=== PATIENT | male | born 1965 | race Caucasian/White ===

== ENCOUNTER 2018-07-06 12:17 | Emergency (ER) | payer BC, MEDICAID ==
[~2018-07-06] VITALS: Ht 180.3 cm; Wt 83.9 kg
[~2018-07-06 12:17] MED LIST: ANDROGEL75 GM; BENAZEPRIL HCL40 MG; BENTYL 10 MG CA10 MG PO; BENTYL10 MG PO; CARAFATE 1 GM TA1 G1 PO; CARAFATE 11 GM/10 M1 PO; CELEXA40 MG PO; DILANTIN100 MG PO; FENOFIBRATE145 M1; FENOFIBRATE145 MG PO; FENTANYL PATCH75 MCG TRANSDERM; GLUCOPHAGE XR500 MG PO; GLUCOPHAGE500 MG PO; HYDROCODON-ACE1 EAC4; LIPITOR 10 MG10 M1 PO; LOTREL 10-40 M1 EACH PO; MEDROLDOSEPACK PO; MOBIC7.5 M1 PO; NAPROSYN500 MG PO; NORCO 10-325 T1 EACH PO; NORCO 5-325 TA1 EACH PO; ONDANSETRON HCL4 M2 PO; ONDANSETRON ODT4 MG PO; PERCOCET 5-3251 EACH PO; PHENERGAN 25 MG25 MG PO; PHENERGAN25 M2 RC; PROMETHAZINE HC25 M2 PO; ROBAXIN500 MG PO; TOPROL XL25 MG PO; TRAMADOL 50 MG50 MG PO; TRIAMTERENE-HC1 EAC1 PO; TRICOR145 MG PO; VICODIN HP 10-1 EAC1 PO; VITAMIN D 5050000 I1; VITAMIN D1000 UNI1 PO; XANAX 0.5 MG0.5 M1; XANAX 0.5 MG0.5 MG PO; ZANTAC 150MG T150 M1 PO; ZENPEP DR 20,01 EACH PO; ZOFRAN 4 MG ORAL4 MG PO; ZOFRAN4 MG PO; [UNRECOGNIZED DRUG - REMARK]
[2018-07-06 13:05] LABS: AMP/METHAMP Negative (Negative); BARBITURATES Negative (Negative); BENZODIAZEPINES POSITIVE (Negative); COCAINE Negative (Negative); METHADONE Negative (Negative); OPIATES POSITIVE (Negative); THC POSITIVE (Negative)
[2018-07-06 13:08] LABS: ABSOLUTE LYMPHOCYTES 1.7 thou/uL (0.8-5.3); ABSOLUTE MONOCYTES 0.6 thou/uL (0.0-1.2); BASOPHILS 0.3 %; EOSINOPHILS 0.4 %; HEMATOCRIT 49.8 % (42.0-52.0); HEMOGLOBIN 16.9 gm/dL (14.0-18.0); LYMPHOCYTES 15.1 %; MCH 31.8 pg (26.0-34.0); MCV 93.5 fL (80.0-100.0); MONOCYTES 5.5 %; MPV 8.8 fl. (7.2-11.1); NUCLEATED RBCS 0 /100WBC; PLATELET COUNT* 273 thou/uL (150-400); POLYS 78.7 %; RBC 5.33 mil/uL (4.50-6.00); RDW-CV 12.7 % (10.5-14.5); WBC 11.4 thou/uL (4.0-11.0)
[2018-07-06 13:20] LABS: ANION GAP 13 mmol/L (7-16); BUN 17 mg/dL (7-18); CALCIUM 9.7 mg/dL (8.5-10.1); CHLORIDE 98 mmol/L (98-107); CO2 26 mmol/L (21-32); GLUCOSE 138 mg/dL (70-99); POTASSIUM 3.1 mmol/L (3.5-5.1); SODIUM 137 mmol/L (136-145)
[2018-07-06 13:27] LABS: ALBUMIN 4.9 g/dL (3.4-5.0); ALKALINE PHOSPHATASE 50 U/L (46-116); AMYLASE 107 U/L (25-115); LIPASE 197 U/L (73-393); SGOT 35 U/L (15-37); SGPT 58 U/L (30-65); TOTAL BILIRUBIN 0.7 mg/dL (<0.1-1.0); TOTAL PROTEIN 8.6 g/dL (6.4-8.2); TROPONIN-I LEVEL <0.06 ng/mL (<0.06)
[2018-07-06 13:40] LABS: PCP Negative (Negative)
[2018-07-06 14:40] LABS: URINE BLOOD 3+ (Negative); URINE CLARITY CLEAR; URINE COLOR YELLOW; URINE GLUCOSE-RANDOM TRACE (Negative); URINE KETONES TRACE (Negative); URINE LEUKOCYTES-REFLEX NEGATIVE (Negative); URINE PROTEIN 3+ (Negative); URINE SPECIFIC GRAVITY >= 1.030 (1.005-1.030)
[2018-07-06 14:52] LABS: URINE BILIRUBIN 2+ (Negative); URINE NITRITE-REFLEX POSITIVE (Negative)
[2018-07-06 14:53] LABS: ICTOTEST (BILI CONFIRMATORY) Negative (Negative)
[2018-07-06 14:56] LABS: BACTERIA-REFLEX 1-9 Few /HPF (None Seen); CALCIUM OXALATE 0-3 Few /LPF (None Seen); CASTS None Seen /LPF (None Seen); MUCUS 4-6 Moderate strn/LPF (None Seen); SQUAMOUS 0-3 Few /LPF (0-3); URINE RBC 0-2 Rare /HPF (0-2); URINE WBC-REFLEX 0-5 Rare /HPF (0-5)
[2018-07-06] MEDS ORDERED: LEVAQUIN 500 M500 M2 PO (15:23)
[2018-07-06] MEDS ORDERED: LOMOTIL TABLET1 EACH PO (15:23)
[2018-07-06] MEDS ORDERED: PHENERGAN 25 MG25 M1 PO (15:23)
[2018-07-06] MEDS ORDERED: PROMS25 WY RECTAL (15:23)
[2018-07-06 16:16] VITALS: BP 120/88
--- NOTE | 2018-07-07 14:19 | EKG ---
[place] [address] ELECTROCARDIOGRAM REPORT Name: CALDERON YOUNG [id number] Admission: 07/06/18 Attend Phys: Discharge: 07/06/18 Date of : 61 Report #: [id number] THIS REPORT FOR: //name// [facility] ED Test Date: 2018-07-06 Test Time: 13:56:58 Pat Name: CALDERON YOUNG Department: Room: Gender: Sawmill Hand: Star BROOKS : 1965 Requested By: Radha Mckeon Order Number: [id number] MD: Asim Ortiz Measurements Intervals [place] Rate: 55 P: 17 TX: 116 QRS: 69 QRSD: 110 T: 43 QT: 467 QTc: 447 Interpretive Statements Sinus bradycardia Borderline short [place] interval Compared to ECG 10/24/2013 09:45:21 rate increased Electronically Signed On 07-07-2018 14:19:21 PHOTOGRAPHY INSTRUCTOR by Asim rOtiz [email or web address] <ELECTRONICALLY SIGNED> By: Asim Ortiz MD, [facility] 07/07/18 1419 1356 1356 Asim Ortiz MD, FACC /EPI
== END 2018-07-06 16:17 | disposition home or self-care (01) ==
LOC: M.ERS 12:17
PROVIDERS: Nurse Practitioner Family
DX: K52.9 Noninfective gastroenteritis and colitis, unspecified (principal); E87.6 Hypokalemia; N39.0 Urinary tract infection, site not specified; I10 Essential (primary) hypertension; E11.9 Type 2 diabetes mellitus without complications; F41.9 Anxiety disorder, unspecified; F32.9 Major depressive disorder, single episode, unspecified; F17.210 Nicotine dependence, cigarettes, uncomplicated; Z88.6 Allergy status to analgesic agent; Z90.49 Acquired absence of other specified parts of digestive tract; Z79.899 Other long term (current) drug therapy

== ENCOUNTER 2018-11-15 10:51 | Emergency (ER) | payer BC, MEDICAID ==
[~2018-11-15] VITALS: Ht 180.3 cm; Wt 81.7 kg
[~2018-11-15 10:51] MED LIST changes: +LEVAQUIN 500 M500 M2 PO; +LOMOTIL TABLET1 EACH PO; +PHENERGAN 25 MG25 M1 PO; +PROMS25 WY RECTAL
[2018-11-15 11:19] LABS: HEMOGLOBIN 16.4 gm/dL (14.0-18.0); MCH 31.5 pg (26.0-34.0); MCHC 34.3 g/dL (28.0-37.0); MPV 8.6 fl. (7.2-11.1); NUCLEATED RBCS 0 /100WBC; PLATELET COUNT* 279 thou/uL (150-400); RBC 5.21 mil/uL (4.50-6.00); RDW-CV 13.3 % (10.5-14.5); WBC 14.2 thou/uL (4.0-11.0)
[2018-11-15 11:39] LABS: ALBUMIN 4.6 g/dL (3.4-5.0); ALKALINE PHOSPHATASE 54 U/L (46-116); ANION GAP 13 mmol/L (7-16); BUN 17 mg/dL (7-18); CALCIUM 9.2 mg/dL (8.5-10.1); CHLORIDE 101 mmol/L (98-107); CO2 27 mmol/L (21-32); CREATININE 0.9 mg/dL (0.6-1.3); GLUCOSE 186 mg/dL (70-99); LIPASE 91 U/L (73-393); SGOT 26 U/L (15-37); SGPT 37 U/L (30-65); SODIUM 141 mmol/L (136-145); TOTAL BILIRUBIN 0.5 mg/dL (<0.1-1.0); TOTAL PROTEIN 8.3 g/dL (6.4-8.2); TROPONIN-I LEVEL <0.06 ng/mL (<0.06)
[2018-11-15 11:43] LABS: ABSOLUTE LYMPHOCYTES 1.1 thou/uL (0.8-5.3); ABSOLUTE MONOCYTES 0.4 thou/uL (0.0-1.2); ABSOLUTE NEUTROPHILS 12.6 thou/uL (1.6-8.1); ANISOCYTOSIS 1+; PLATELET ESTIMATE ADEQUATE; POIKILOCYTOSIS 1+
[2018-11-15] MEDS ORDERED: ZOFRAN4 MG PO (14:00)
[2018-11-15 14:19] VITALS: BP 168/89
--- NOTE | 2018-11-15 16:33 | EKG ---
[place] [address] ELECTROCARDIOGRAM REPORT Name: CALDERON YOUNG [id number] Admission: 11/15/18 Attend Phys: Discharge: 11/15/18 Date of : 61 Report #: [id number] THIS REPORT FOR: //name// [facility] ED Test Date: 2018-11-15 Test Time: 11:20:18 Pat Name: CALDERON YOUNG Department: Room: Gender: M Well Logger: TDOWNS : 1965 Requested By: Norberto Bond Order Number: [id number] MD: Kristofer Haile Measurements Intervals [place] Rate: 45 P: 54 VA: 133 QRS: 56 QRSD: 100 T: 44 QT: 490 QTc: 424 Interpretive Statements Sinus bradycardia Compared to ECG 07/06/2018 13:56:58 No significant changes Electronically Signed On 11-15-2018 16:33:43 CDT by Kristofer Haile [email or web address] <ELECTRONICALLY SIGNED> By: Kristofer Haile MD, [facility] 11/15/18 1633 D: 03/1119 1120 Kristofer Haile MD, FACC /EPI
== END 2018-11-15 14:14 | disposition home or self-care (01) ==
LOC: M.ERS 10:51
PROVIDERS: Emergency Medicine
DX: R10.13 Epigastric pain (principal); R11.2 Nausea with vomiting, unspecified; F17.210 Nicotine dependence, cigarettes, uncomplicated; I10 Essential (primary) hypertension; E11.9 Type 2 diabetes mellitus without complications; F41.9 Anxiety disorder, unspecified; F32.9 Major depressive disorder, single episode, unspecified; Z88.5 Allergy status to narcotic agent; Z90.49 Acquired absence of other specified parts of digestive tract

== ENCOUNTER 2018-12-18 12:14 | Inpatient (IN) | payer BC, MEDICAID ==
[~2018-12-18] VITALS: Ht 180.3 cm; Wt 90.7 kg
--- NOTE | ~2018-12-18 | CON ---
[address] [address] CONSULTATION Name: CALDERON YOUNG Room: [address] IN .R.#: [id number] Admission: 12/18/18 Attend Phys: Claudia James MD Discharge: Date of : 61 Report #: [id number] THIS REPORT FOR: //name// CC: Jt James [facility] DATE OF SERVICE: 12/18/2018 REFERRING PHYSICIAN: Dr. Smallwood. REASON FOR CONSULTATION: Right renal pelvic stone and right flank pain. HISTORY OF PRESENT ILLNESS: This 53-year-old gentleman with a known right 1 cm renal pelvic stone. He saw my partner, Dr. Carney, recently, who has him scheduled for ureteroscopy, laser lithotripsy and stent placement next week. Unfortunately, he has developed some progressive flank pain. He has felt hot and has had some nausea without vomiting. He thinks he may have had a fever, but none has been recorded while he is in the hospital. He presented to the Emergency Room, where he has been given IV narcotics and he is feeling better. PAST MEDICAL HISTORY: History of pancreatitis, diabetes, hypertension, back fusion, hip repair, laparoscopic cholecystectomy, left foot surgery, anxiety, depression, kidney stones. MEDICATIONS: Promethazine, Robaxin, hydrocodone, fentanyl, amlodipine, ranitidine, alprazolam, amylase/lipase/protease, metoprolol, metformin, and fenofibrate. ALLERGIES: ZOFRAN. SOCIAL HISTORY: He does smoke tobacco about half pack a day. Denies any alcohol use or drug use. REVIEW OF SYSTEMS: CONSTITUTIONAL: He does note some subjective fevers and chills. RESPIRATORY: No cough or shortness of breath. CARDIOVASCULAR: No chest pain or palpitations. GASTROINTESTINAL: He does have abdominal pain, but denies any diarrhea or constipation. GENITOURINARY: No frequency, urgency, or dysuria. No gross hematuria. A 10-point review of systems is otherwise reviewed and negative. PHYSICAL EXAMINATION: VITAL SIGNS: Temperature 37.4, heart rate 55, respiratory rate 17, [place] [address] CONSULTATION Name: CALDERON YOUNG Room: [address]#: [id number] Admission: 12/18/18 Attend Phys: Claudia James MD Discharge: Date of : 61 Report #: [id number] pressure 142/84. GENERAL: He is alert and oriented x 3, no apparent distress. HEENT: Normocephalic, atraumatic. NECK: Supple. LUNGS: Clear. HEART: Regular rate and rhythm. ABDOMEN: Soft, nontender, nondistended. BACK: No CVA tenderness. EXTREMITIES: No cyanosis, clubbing, edema. SKIN: Warm, dry, and intact. NEUROLOGIC: Cranial nerves 2-12 are intact. LABORATORY DATA: White count 10.3, hemoglobin 15.8, platelets 245. Urinalysis, 0-5 white cells, greater than 20 red blood cells, 1-9 bacteria. Sodium 141, potassium 4, BUN 14, creatinine 0.9. CT scan of the abdomen and pelvis, I reviewed the images, it shows an 11 mm right UPJ stone without any hydronephrosis, there is some periureteric inflammatory changes surrounding the UPJ, no other stones were identified on the right or the left. ASSESSMENT AND PLAN: An 11 mm right ureteropelvic junction stone. I reviewed the options in detail with the patient of stenting versus medical management until he can have his plan treatment next week with Dr. Carney versus attempted ureteroscopy while he is hospitalized. He does not feel that he can be discharged without needing IV narcotics, so he prefers to try to schedule ureteroscopy with laser lithotripsy and stent placement while he is in the hospital. We will check OR and surgeon availability. If possible, we will try to arrange for tomorrow or possibly Sunday. I explained the risks, benefits, possible complications of cystoscopy with retrograde pyelogram, ureteroscopy, laser lithotripsy and stenting. They include but not limited to bleeding; infection; damage to surrounding organs such as urethra, the bladder, and the ureter; inability to treat stone in a single setting; the need for secondary procedures including a repeat ureteroscopy, lithotripsy, stent irritation and complications from general anesthesia. He voiced current understanding. He had a chance to ask questions, which were answered to his satisfaction. He elects to proceed. If he does spike a measurable temperature here, I will recommend more urgent stenting. Possible urinary tract infection, urine is not that remarkable for infection, but we will start him on empiric antibiotics given his history of a recent subjective fever. By: [id number] Tolliver MD /nt
[2018-12-18 12:19] VITALS: BP 111/76
[2018-12-18 12:36] LABS: URINE BLOOD 3+ (Negative); URINE CLARITY CLEAR; URINE COLOR YELLOW; URINE GLUCOSE-RANDOM NEGATIVE (Negative); URINE KETONES NEGATIVE (Negative); URINE LEUKOCYTES-REFLEX TRACE (Negative); URINE NITRITE-REFLEX NEGATIVE (Negative); URINE PROTEIN 2+ (Negative); URINE SPECIFIC GRAVITY 1.015 (1.005-1.030); URINE UROBILINOGEN 0.2 E.U./dl (0.2-1.0)
[2018-12-18 12:38] LABS: ICTOTEST (BILI CONFIRMATORY) Negative (Negative); URINE BILIRUBIN 1+ (Negative)
[2018-12-18 12:41] LABS: BACTERIA-REFLEX 1-9 Few /HPF (None Seen); CASTS None Seen /LPF (None Seen); CRYSTALS None Seen /LPF (None Seen); MUCUS None Seen strn/LPF (None Seen); SQUAMOUS 0-3 Few /LPF (0-3); URINE RBC >20 Many /HPF (0-2); URINE WBC-REFLEX 0-5 Rare /HPF (0-5)
[2018-12-18 13:04] LABS: ABSOLUTE LYMPHOCYTES 1.6 thou/uL (0.8-5.3); ABSOLUTE MONOCYTES 0.4 thou/uL (0.0-1.2); ABSOLUTE NEUTROPHILS 8.3 thou/uL (1.6-8.1); BASOPHILS 0.3 %; EOSINOPHILS 0.1 %; HEMATOCRIT 46.3 % (42.0-52.0); HEMOGLOBIN 15.8 gm/dL (14.0-18.0); LYMPHOCYTES 15.6 %; MCH 31.5 pg (26.0-34.0); MCHC 34.1 g/dL (28.0-37.0); MCV 92.4 fL (80.0-100.0); MONOCYTES 3.8 %; MPV 8.8 fl. (7.2-11.1); NUCLEATED RBCS 0 /100WBC; PLATELET COUNT* 245 thou/uL (150-400); POLYS 80.2 %; RBC 5.01 mil/uL (4.50-6.00); RDW-CV 13.4 % (10.5-14.5); WBC 10.3 thou/uL (4.0-11.0)
[2018-12-18 13:18] LABS: ALKALINE PHOSPHATASE 45 U/L (46-116); ANION GAP 10 mmol/L (7-16); BUN 14 mg/dL (7-18); CALCIUM 8.8 mg/dL (8.5-10.1); CHLORIDE 103 mmol/L (98-107); CO2 28 mmol/L (21-32); CREATININE 0.9 mg/dL (0.6-1.3); GLUCOSE 140 mg/dL (70-99); LIPASE 154 U/L (73-393); SGOT 16 U/L (15-37); SGPT 28 U/L (30-65); SODIUM 141 mmol/L (136-145); TOTAL BILIRUBIN 0.4 mg/dL (<0.1-1.0); TOTAL PROTEIN 7.5 g/dL (6.4-8.2); TROPONIN-I LEVEL <0.06 ng/mL (<0.06)
[2018-12-18 14:24] VITALS: BP 137/83
[2018-12-18 15:15] VITALS: BP 142/84
[2018-12-18 20:00] VITALS: BP 125/79
[2018-12-19 03:44] LABS: ABSOLUTE EOSINOPHILS 0.1 thou/uL (0.0-0.7); ABSOLUTE LYMPHOCYTES 2.6 thou/uL (0.8-5.3); ABSOLUTE MONOCYTES 0.6 thou/uL (0.0-1.2); ABSOLUTE NEUTROPHILS 3.8 thou/uL (1.6-8.1); BASOPHILS 0.6 %; EOSINOPHILS 1.1 %; HEMATOCRIT 39.8 % (42.0-52.0); LYMPHOCYTES 36.8 %; MCH 31.4 pg (26.0-34.0); MCHC 33.8 g/dL (28.0-37.0); MCV 92.8 fL (80.0-100.0); NUCLEATED RBCS 0 /100WBC; PLATELET COUNT* 191 thou/uL (150-400); POLYS 53.5 %; RBC 4.29 mil/uL (4.50-6.00); RDW-CV 13.3 % (10.5-14.5); WBC 7.1 thou/uL (4.0-11.0)
[2018-12-19 03:52] LABS: CALCIUM 8.2 mg/dL (8.5-10.1); CREATININE 0.9 mg/dL (0.6-1.3); POTASSIUM 3.5 mmol/L (3.5-5.1)
[2018-12-19 04:12] LABS: HEMOGLOBIN 13.4 gm/dL (14.0-18.0)
[2018-12-19 08:00] VITALS: BP 145/94
[2018-12-19 21:45] VITALS: BP 146/89
[2018-12-20 07:50] VITALS: BP 158/98
[2018-12-20 16:57] VITALS: BP 158/98
[2018-12-20 18:30] VITALS: BP 148/78
[2018-12-20 19:30] VITALS: BP 179/96
[2018-12-21] VITALS: BP 143/81
[2018-12-21 04:00] VITALS: BP 159/88
[2018-12-21 04:32] LABS: CALCIUM 8.5 mg/dL (8.5-10.1); CREATININE 0.8 mg/dL (0.6-1.3); POTASSIUM 3.8 mmol/L (3.5-5.1)
[2018-12-21 08:15] VITALS: BP 156/84
[2018-12-21] MEDS ORDERED: LEVSIN0.125 MG SUBLING (11:13)
[2018-12-21] MEDS ORDERED: FLOMAX0.4 MG PO (11:13)
[2018-12-21] MEDS ORDERED: CIPRO500 M1 PO (11:14)
[2018-12-21] MEDS ORDERED: SENNA S TABLET1 EACH PO (11:15)
[2018-12-21 12:06] VITALS: BP 158/98
[2018-12-21] MEDS ORDERED: VICODIN HP 10-1 EAC1 PO (13:08)
[2018-12-21 14:17] VITALS: BP 158/98
--- NOTE | 2018-12-23 11:12 | OP ---
[facility] [address] [place] [address] OPERATIVE REPORT Name: CALDERON YOUNG Room: [address]R.#: [id number] Admission: 12/18/18 Attend Phys: Claudia James MD Discharge: 12/21/18 Date of : 61 Report #: [id number] THIS REPORT FOR: //name// CC: Claudia James [facility] DATE OF SERVICE: 12/20/2018 PREOPERATIVE DIAGNOSIS: Right flank pain and ureteropelvic junction calculus. POSTOPERATIVE DIAGNOSIS: Right flank pain and ureteropelvic junction calculus. PROCEDURE: Cystoscopy, right retrograde pyelogram, right ureteral stent placement. SURGEON: Calderon Adams M.D. ANESTHESIA: General. ESTIMATED BLOOD LOSS: None. DRAINS: A 6 x 28 right ureteral stent. SPECIMENS: None. COMPLICATIONS: None. INDICATIONS: This is a 53-year-old male admitted with intractable right flank pain and a 1.1 cm right ureteropelvic junction calculus. After discussion of options for management, he has decided to undergo cystoscopy with right retrograde pyelogram, right ureteral stent placement, possible ureteroscopic stone manipulation with laser. Risks of procedure were explained including, but not limited to, bleeding, infection, anesthesia, cardiopulmonary, vascular events, injury to urethra, bladder, ureters and surrounding structures, possible development of strictures, possible inability to bypass obstruction, possible need for further stone procedures. We also discussed importance of timely followup regarding any ureteral stent left in place and the reasoning for that. Discussed stent symptoms as well. He voiced clear understanding and wanted to proceed. CT images were reviewed and consistent with the radiology report. DESCRIPTION OF PROCEDURE: The patient was on perioperative IV Rocephin. After induction of general anesthesia, he was positioned, prepped and draped in the lithotomy position. Cystourethroscopy was performed after a timeout procedure. The anterior urethra was normal. There was mild bilateral lobe impingement in the prostatic urethra. The bladder neck was elevated. The bladder was entered and systematically examined. The bladder was somewhat [place] [address] OPERATIVE REPORT Name: CALDERON YOUNG Room: [address] IN [facility].#: [id number] Admission: 12/18/18 Attend Phys: Claudia James MD Discharge: 12/21/18 Date of : 61 Report #: [id number] no urethral or bladder lesions visible. Ureteral orifices were orthotopic. No blood was seen from either. Fluoroscopic interrogation over the abdomen was consistent with a right ureteropelvic junction calculus. A 5-Anguillan ureteral catheter was used to perform a right retrograde pyelogram as other calcifications were seen in the pelvis. The distal and mid ureter were normal. Calcification on the right side of the pelvis was noted to be outside the ureter and not producing a filling defect. The filling defect was noted in the region of the right ureteropelvic junction. Catheter was removed and a sensor wire was advanced into the renal pelvis with fluoroscopic guidance. The scope was removed and passed alongside the wire. The scope was used for passage of a second sensor wire alongside the original wire. This was also passed into the renal pelvis with fluoroscopic guidance. Scope was removed leaving both wires in place. Attempts to pass the 11-Anguillan obturator from 07/02 x 36 cm ureteral access sheath were unsuccessful with gentle manipulation. Fluoroscopic guidance revealed the catheter not advancing easily and some kinking in the region of the bladder neck possibly related to his bladder neck elevation. Attempts to pass the obturator and sheath in tandem with gentle manipulation were also unsuccessful. I elected to place a ureteral stent to allow for passive dilation and deferred definitive stone management. This possibility had been discussed with the patient preoperatively. One of the wires was removed leaving the original wire in place. This was loaded onto the cystoscope and used for placement of a 6 x 28 right ureteral stent with good position confirmed in the renal pelvis fluoroscopically and in the bladder visually. Drainage from the stent was clear. The bladder was left partially filled and the scope was removed. Lidocaine jelly was given per urethra. Given the patient's significant voiding symptomatology and bladder neck elevation, I elected to leave the Salas catheter in place overnight. We will arrange for a voiding trial in the morning. The patient tolerated the procedure well and was taken to the recovery room in stable condition. Plan will be to have him followup regarding definitive stone management after a period of passive dilation. <ELECTRONICALLY SIGNED> By: Calderon Adams MD 12/23/18 1112 1737 2043Joneto Adams MD /rick
== END 2018-12-21 13:20 | disposition home or self-care (01) | DRG 660 ==
LOC: M.ERS 12:14 → M.ORTHSURG 14:03 → M.TBA-ER 14:03 → M.ORTHSURG 14:56
PROVIDERS: Physician Assistant; Urology; ADMIT Internal Medicine
DX: N13.2 Hydronephrosis with renal and ureteral calculous obstruction (principal); K86.1 Other chronic pancreatitis; E11.9 Type 2 diabetes mellitus without complications; I10 Essential (primary) hypertension; F41.9 Anxiety disorder, unspecified; F32.9 Major depressive disorder, single episode, unspecified; G89.29 Other chronic pain; F17.210 Nicotine dependence, cigarettes, uncomplicated; M19.91 Primary osteoarthritis, unspecified site; F41.1 Generalized anxiety disorder; M54.9 Dorsalgia, unspecified; R31.29 Other microscopic hematuria; Z90.49 Acquired absence of other specified parts of digestive tract; Z87.442 Personal history of urinary calculi; Z88.6 Allergy status to analgesic agent; Z88.8 Allergy status to other drugs, medicaments and biological substances; Z79.891 Long term (current) use of opiate analgesic; Z82.49 Family history of ischemic heart disease and other diseases of the circulatory system; Z80.52 Family history of malignant neoplasm of bladder; Z80.51 Family history of malignant neoplasm of kidney; Z83.6 Family history of other diseases of the respiratory system; Z83.3 Family history of diabetes mellitus; Z79.899 Other long term (current) drug therapy

== ENCOUNTER 2021-03-12 16:46 | Inpatient (IN) | payer MEDICAID ==
[~2021-03-12] VITALS: Ht 180.3 cm; Wt 77.1 kg
--- NOTE | ~2021-03-12 | H ---
[address] [address] HISTORY AND PHYSICAL Name: CALDERON YOUNG Room: [address] IN M.R.#: [id number] Admission: 03/12/21 Attend Phys: Gm Rodriguez Discharge: 03/13/21 Date of : 61 Report #: [id number] THIS REPORT FOR: cc: Markos Lora MD, Usman MD [facility],Medical Records Staff ~ Patient was here less than 24 hour please refer to the emergency room note. By: 1454Medical Records Staff MEL /DAQUAN
[~2021-03-12 16:46] MED LIST changes: +CIPRO500 M1 PO; +FLOMAX0.4 MG PO; +LEVSIN0.125 MG SUBLING; +SENNA S TABLET1 EACH PO
[2021-03-12 16:55] VITALS: BP 185/82
[2021-03-12] MEDS ORDERED: FAMOTIDINE 10 M10 MG PO (17:02)
[2021-03-12 18:07] LABS: URINE BILIRUBIN NEGATIVE (Negative); URINE BLOOD NEGATIVE (Negative); URINE CLARITY CLEAR; URINE COLOR YELLOW; URINE GLUCOSE-RANDOM NEGATIVE (Negative); URINE KETONES NEGATIVE (Negative); URINE LEUKOCYTES-REFLEX NEGATIVE (Negative); URINE NITRITE-REFLEX NEGATIVE (Negative); URINE PROTEIN NEGATIVE (Negative); URINE SPECIFIC GRAVITY >= 1.030 (1.005-1.030); URINE UROBILINOGEN 0.2 E.U./dl (0.2-1.0)
[2021-03-12 18:10] LABS: HEMATOCRIT 41.5 % (42.0-52.0); HEMOGLOBIN 14.2 gm/dL (14.0-18.0); MCH 31.8 pg (26.0-34.0); MCHC 34.2 g/dL (28.0-37.0); MCV 92.9 fL (80.0-100.0); MPV 8.2 fl. (7.2-11.1); NUCLEATED RBCS 0 /100WBC; PLATELET COUNT* 283 thou/uL (150-400); RBC 4.46 mil/uL (4.50-6.00); RDW-CV 13.3 % (10.5-14.5); WBC 12.6 thou/uL (4.0-11.0)
[2021-03-12 18:16] LABS: AMP/METHAMP Negative (Negative); BARBITURATES Negative (Negative); BENZODIAZEPINES POSITIVE (Negative); COCAINE Negative (Negative); METHADONE Negative (Negative); OPIATES POSITIVE (Negative); PCP Negative (Negative); THC POSITIVE (Negative)
[2021-03-12 18:19] LABS: CALCIUM 9.2 mg/dL (8.5-10.1); POTASSIUM 4.1 mmol/L (3.5-5.1)
[2021-03-12 18:24] LABS: ALBUMIN 4.6 g/dL (3.4-5.0); TOTAL BILIRUBIN 0.4 mg/dL (<0.1-1.0)
[2021-03-12 18:43] LABS: ABSOLUTE LYMPHOCYTES 1.3 thou/uL (0.8-5.3); ABSOLUTE NEUTROPHILS 11.3 thou/uL (1.6-8.1)
[2021-03-12 18:44] LABS: PLATELET ESTIMATE ADEQUATE
[2021-03-12 20:20] VITALS: BP 148/91
[2021-03-12 21:18] VITALS: BP 149/81
--- NOTE | 2021-03-13 00:22 | NUR ---
PT REPORTED THAT HE WANTED TO LEAVE AMA; HE STATED " I DO NOT WANT TO STAY IN THE ER TO BE BOARDED AN INPATIENT FOR A HEART RATE"; NURSE EDUCATED PT THAT HE WAS BEING ADMITTED FOR BRADYCARDIA EVALUTION; EXPLAINED THE RISK ARE BRAIN HYPOXIA AND EVEN ; PT WAS WILL TO SIGN THE AMA PAPERS; AMBULATED SELF FROM THE ER PER SELF; IV REMOVED PER NURSE INTACT NO REDDNESS OR BLEEDING; DISCHARGED COMPLETED
--- NOTE | 2021-03-14 13:59 | EKG ---
[place] [address] ELECTROCARDIOGRAM REPORT Name: CALDERON YOUNG Room: [place] [address] [address] IN M.R.#: [id number] Admission: 03/12/21 Attend Phys: Conor Garcia Discharge: 03/13/21 Date of : 61 Date of Service: 03/12/211815 Report #: [id number] THIS REPORT FOR: //name// [facility] ED Test Date: 2021-03-12 Test Time: 18:16:42 Pat Name: CALDERON YOUNG Department: Room: [facility] Gender: M Residential Collections: STUDENT : 1965 Requested By: Radha Mckeon Order Number: [id number] MD: Calderon Jenkins Measurements Intervals [place] Rate: 36 P: 45 SD: 114 QRS: 63 QRSD: 101 T: 64 QT: 517 QTc: 400 Interpretive Statements Sinus bradycardia Borderline short SD interval Compared to ECG 11/15/2018 11:20:18 No significant changes Electronically Signed On 03-14-2021 13:59:14 CDT by Calderon Jenkins [email or web address] <ELECTRONICALLY SIGNED> By: Calderon Jenkins MD, [facility] 03/14/21 1359 1816 1816 Calderon Jenkins MD, [facility] /EPI
== END 2021-03-13 00:26 | disposition left against medical advice (07) | DRG 310 ==
LOC: M.ERS 16:46 → M.TBA-ER 20:20
PROVIDERS: Nurse Practitioner Family; ADMIT Internal Medicine; ATTEND Internal Medicine
DX: R00.1 Bradycardia, unspecified (principal); E11.9 Type 2 diabetes mellitus without complications; I10 Essential (primary) hypertension; F41.9 Anxiety disorder, unspecified; F32.9 Major depressive disorder, single episode, unspecified; R11.15 Cyclical vomiting syndrome unrelated to migraine; G89.29 Other chronic pain; Z20.822 Contact with and (suspected) exposure to COVID-19; Z53.21 Procedure and treatment not carried out due to patient leaving prior to being seen by health care provider; Z79.899 Other long term (current) drug therapy; Z98.1 Arthrodesis status; Z90.49 Acquired absence of other specified parts of digestive tract; Z79.84 Long term (current) use of oral hypoglycemic drugs; Z88.5 Allergy status to narcotic agent

== ENCOUNTER 2021-04-28 05:54 | Inpatient (IN) | payer MEDICAID ==
[~2021-04-28] VITALS: Ht 180.3 cm; Wt 77.1 kg
[~2021-04-28 05:54] MED LIST changes: +FAMOTIDINE 10 M10 MG PO
[2021-04-28 06:26] LABS: ABSOLUTE BASOPHILS 0.1 thou/uL (0.0-0.2); ABSOLUTE EOSINOPHILS 0.1 thou/uL (0.0-0.7); ABSOLUTE LYMPHOCYTES 1.5 thou/uL (0.8-5.3); ABSOLUTE MONOCYTES 0.6 thou/uL (0.0-1.2); ABSOLUTE NEUTROPHILS 11.4 thou/uL (1.6-8.1); BASOPHILS 0.5 %; EOSINOPHILS 0.6 %; HEMATOCRIT 43.2 % (42.0-52.0); HEMOGLOBIN 14.6 gm/dL (14.0-18.0); LYMPHOCYTES 11.2 %; MCH 30.9 pg (26.0-34.0); MCHC 33.9 g/dL (28.0-37.0); MPV 8.5 fl. (7.2-11.1); NUCLEATED RBCS 0 /100WBC; PLATELET COUNT* 259 thou/uL (150-400); POLYS 83.7 %; RBC 4.74 mil/uL (4.50-6.00); WBC 13.7 thou/uL (4.0-11.0)
[2021-04-28 06:37] LABS: CALCIUM 8.9 mg/dL (8.5-10.1); CREATININE 1.1 mg/dL (0.6-1.3); POTASSIUM 3.4 mmol/L (3.5-5.1)
[2021-04-28 06:41] LABS: ALBUMIN 4.5 g/dL (3.4-5.0); MAGNESIUM 1.3 mg/dL (1.8-2.4); TOTAL BILIRUBIN 0.5 mg/dL (<0.1-1.0); TOTAL PROTEIN 7.8 g/dL (6.4-8.2)
--- NOTE | 2021-04-28 09:54 | NUR ---
PT TAKEN TO PACU WITH BOARDING RN.
[2021-04-28 10:11] VITALS: BP 147/79
[2021-04-28] MEDS ORDERED: METFORMIN HCL500 M3 PO (10:54)
[2021-04-28] MEDS ORDERED: METHOCARBAMOL500 M2 PO (10:55)
[2021-04-28] MEDS ORDERED: LIPITOR10 MG PO (10:57)
[2021-04-28] MEDS ORDERED: DULOXETINE HCL60 MG PO (10:58)
[2021-04-28] MEDS ORDERED: HYDROCHLOROTHIA25 M1 PO (11:05)
[2021-04-28] MEDS ORDERED: TRIAMTERENE/HCT1 CA1 PO (11:06)
[2021-04-28] MEDS ORDERED: HYDROXYZINE HCL25 M2 PO (11:11)
[2021-04-28] MEDS ORDERED: NEURONTIN 300M300 M2 PO (11:12)
[2021-04-28 16:00] VITALS: BP 115/70
[2021-04-28 20:00] VITALS: BP 144/71
[2021-04-29 02:55] VITALS: BP 127/80
[2021-04-29 04:39] LABS: HEMATOCRIT 35.9 % (42.0-52.0); MCH 31.8 pg (26.0-34.0); MCHC 34.7 g/dL (28.0-37.0); MCV 91.6 fL (80.0-100.0); MPV 8.3 fl. (7.2-11.1); RBC 3.92 mil/uL (4.50-6.00); WBC 5.6 thou/uL (4.0-11.0)
[2021-04-29 04:51] LABS: CREATININE 0.9 mg/dL (0.6-1.3); MAGNESIUM 1.5 mg/dL (1.8-2.4); POTASSIUM 3.4 mmol/L (3.5-5.1)
[2021-04-29 04:56] LABS: HEMOGLOBIN 12.4 gm/dL (14.0-18.0)
[2021-04-29 06:09] VITALS: BP 131/82
[2021-04-29 08:43] VITALS: BP 130/74
[2021-04-29 13:20] LABS: URINE BLOOD NEGATIVE (Negative); URINE CLARITY CLEAR; URINE COLOR YELLOW; URINE GLUCOSE-RANDOM NEGATIVE (Negative); URINE KETONES TRACE (Negative); URINE LEUKOCYTES-REFLEX NEGATIVE (Negative); URINE NITRITE-REFLEX NEGATIVE (Negative); URINE PROTEIN NEGATIVE (Negative); URINE SPECIFIC GRAVITY 1.025 (1.005-1.030); URINE UROBILINOGEN 0.2 E.U./dl (0.2-1.0)
[2021-04-29 13:27] LABS: ICTOTEST (BILI CONFIRMATORY) Negative (Negative); URINE BILIRUBIN 1+ (Negative)
[2021-04-29 14:01] LABS: ALBUMIN 3.5 g/dL (3.4-5.0); CALCIUM 7.8 mg/dL (8.5-10.1); CREATININE 0.8 mg/dL (0.6-1.3); POTASSIUM 4.2 mmol/L (3.5-5.1); TOTAL BILIRUBIN 1.1 mg/dL (<0.1-1.0); TOTAL PROTEIN 6.3 g/dL (6.4-8.2)
--- NOTE | 2021-04-29 15:50 | NUR ---
Pt resides at home with SO. Independent. No DME. No hx of HH or SNF. Goal is home at dc. Anticipate dc in a few days. Manage pain
[2021-04-29 16:00] VITALS: BP 142/75
[2021-04-29 20:00] VITALS: BP 132/74
[2021-04-30 02:36] VITALS: BP 130/70
[2021-04-30 05:27] VITALS: BP 132/72
[2021-04-30 07:20] VITALS: BP 118/69
[2021-04-30 12:24] VITALS: BP 153/77
[2021-04-30 12:29] LABS: ABSOLUTE EOSINOPHILS 0.1 thou/uL (0.0-0.7); ABSOLUTE LYMPHOCYTES 1.3 thou/uL (0.8-5.3); ABSOLUTE MONOCYTES 0.4 thou/uL (0.0-1.2); ABSOLUTE NEUTROPHILS 4.2 thou/uL (1.6-8.1); BASOPHILS 0.7 %; EOSINOPHILS 1.6 %; HEMATOCRIT 35.1 % (42.0-52.0); HEMOGLOBIN 12.1 gm/dL (14.0-18.0); LYMPHOCYTES 22.3 %; MCH 31.6 pg (26.0-34.0); MCHC 34.4 g/dL (28.0-37.0); MONOCYTES 5.9 %; MPV 8.2 fl. (7.2-11.1); NUCLEATED RBCS 0 /100WBC; PLATELET COUNT* 189 thou/uL (150-400); POLYS 69.5 %; RBC 3.82 mil/uL (4.50-6.00); RDW-CV 12.9 % (10.5-14.5)
[2021-04-30 12:42] LABS: PROTIME 10.9 Seconds (9.20-11.50)
[2021-04-30 12:47] LABS: ALBUMIN 3.4 g/dL (3.4-5.0); ALKALINE PHOSPHATASE 134 U/L (46-116); ANION GAP 8 mmol/L (7-16); BUN 13 mg/dL (7-18); CHLORIDE 103 mmol/L (98-107); CHOLESTEROL 100 mg/dL (<200); CO2 26 mmol/L (21-32); CREATININE 0.7 mg/dL (0.6-1.3); GLUCOSE 113 mg/dL (70-99); HDL CHOLESTEROL 27 mg/dL (>40); LDL CHOLESTEROL 41 mg/dL (<100); POTASSIUM 3.8 mmol/L (3.5-5.1); SERUM ASSESSMENT Clear; SGOT 131 U/L (15-37); SGPT 201 U/L (30-65); SODIUM 137 mmol/L (136-145); TC:HDL 3.7 Ratio (Not establshd); TOTAL BILIRUBIN 0.6 mg/dL (<0.1-1.0); TOTAL PROTEIN 6.2 g/dL (6.4-8.2); TRIGLYCERIDE 162 mg/dL (<150); VLDL 32 mg/dL (<40)
[2021-04-30 16:00] VITALS: BP 148/83
--- NOTE | 2021-04-30 16:51 | NUR ---
PT REMAINED ALERT AND ORIENTED. PAIN MEDS GIVEN ORDERED. FALL RISK PRECAUTIONS IN PLACE. HOURLY ROUNDING COMPLETED. CALL LIGHT WITHIN REACH.
[2021-04-30 20:00] VITALS: BP 127/77
[2021-05-01 02:12] VITALS: BP 114/61
[2021-05-01 05:15] VITALS: BP 110/60
[2021-05-01 07:35] VITALS: BP 141/63
[2021-05-01 08:47] VITALS: BP 141/63
--- NOTE | 2021-05-01 11:34 | NUR ---
PT GIVEN DISCHARGE INFORMATION., IV REMOVED AND HEART MONITORED REMOVED. PT BELONGINGS GATHERED. FALL RISK PRECAUITONS IN PLACE. ACCU CHECKS COMPLETED. PT LEFT AMBULATORY TO HOME.
--- NOTE | 2021-05-02 07:22 | CON ---
[address] [address] CONSULTATION Name: CALDERON YOUNG Room: [address] M.R.#: [id number] Admission: 04/28/21 Attend Phys: Brianna Singleton MD Discharge: 05/01/21 Date of : 61 Report #: [id number] THIS REPORT FOR: cc: Markos Lora MD, Usman MD Vardakis, Gregory DO ~ cc: Ky Singleton MD, Markos Lora MD DATE OF CONSULTATION: 04/30/2021 GASTROINTESTINAL CONSULTATION REFERRING PHYSICIAN: Brianna Singleton MD REASON FOR CONSULTATION: Recurrent pancreatitis. ASSESSMENT AND PLAN: 1. Acute pancreatitis, superimposed on chronic pancreatitis of uncertain etiology. 2. Family history of colon cancer (father) with recent colonoscopy done within the last 3 weeks. 3. Elevated liver function tests of uncertain etiology -- evaluate for possible choledocholithiasis versus sphincter of Oddi dysfunction versus sludge within the biliary tree. RECOMMENDATIONS: 1. The patient appears to be doing better at this time. For this reason, we will advance his diet to heart healthy diet and see how things go. 2. I have recommended that he undergo either an inpatient or an outpatient MRCP. The timing of this will depend on whether or not his liver tests improve. If his bilirubin should increase, he will need to stay in the hospital and undergo an MRCP on Sunday and possibly an ERCP shortly thereafter. 3. If all goes well and he is tolerating a diet, he will undergo an outpatient MRCP and depending on the results of same, he will need to be referred for an endoscopic ultrasound and possible ERCP with Dr. Haja Mcpherson. 4. In the interim, we will continue with all of his current medical therapy and then make further recommendations thereafter. HISTORY OF PRESENT ILLNESS: The patient is a very pleasant 55-year-old white male who has had recurrent bouts of pancreatitis of uncertain etiology, for which he has been hospitalized multiple times over the last several years, mostly at [facility]. He states that this dates back to at least 10 years ago or more and there has not been a clear explanation for why he has the same. He states that he has no known family history of pancreatitis, nor does he have a history of previous alcohol abuse or use. [place] [address] CONSULTATION Name: CALDERON YOUNG Room: [address] M.R.#: [id number] Admission: 04/28/21 Attend Phys: Brianna Singleton MD Discharge: 05/01/21 Date of : 61 Report #: [id number] the past possibly at [facility], but cannot recall what was found. He does not know if he had stones or sludge or what was going on within the same. He has never had any bouts of jaundice at all and has never undergone previous ERCP in the past. He has, however, undergone endoscopic ultrasound by Dr. Mcpherson at [facility], but this had to be number of years ago because Dr. Mcpherson no longer works at [facility]. He has been placed on pancreatic enzymes in hopes that this would help, but he still has episodes of pancreatitis, which he is typically seen in the emergency room here at [place], given IV fluids, pain medications and taken care of at home. He is currently admitted to the hospital with abdominal pain goes into his back, typical with pancreatic issues with associated nausea and vomiting. He has a prior history of hyperlipidemia, but nothing that was significant. He does have autoimmune family history, but it is unclear whether the arthritis is related to rheumatoid arthritis or not. With regards to his upper GI tract, he does have some issues with reflux and indigestion, but that has been severe. He has been taking famotidine, but recently was switched over to omeprazole. He is yet to get this filled because he was just seen in the office a few days ago. He does take meloxicam on a regular basis for chronic back and hip pain. He has no prior history of peptic ulcer disease. He was referred for possible EGD to be done at [facility], but this is yet to be scheduled. With regard to his lower GI tract, he denies any complaints referable to the same. He states he had a recent colonoscopy done at [facility] within the last few weeks and had a few polyps that were precancerous. He is not due for another surveillance colonoscopy for 5 years. ALLERGIES: MORPHINE. MEDICATIONS: At home include atorvastatin, methocarbamol, duloxetine, meloxicam, metoprolol, Zenpep 20 three times with meals, triamterene and hydrochlorothiazide, amlodipine with benazepril, famotidine, gabapentin, alprazolam, fenofibrate and Vicodin. He was recently discontinued off of metformin. PAST MEDICAL HISTORY: Remarkable for underlying hypertension, hyperlipidemia, diabetes, chronic pain syndrome. He has had issues with chronic and recurrent pancreatitis. PAST SURGICAL HISTORY: He has had a previous laparoscopic cholecystectomy. He has had a back fusion plus previous repair of a herniated disk as well. He has also had multiple surgeries on his left hip. He has had a history of anxiety, depression, history of kidney stones requiring surgery as well. [address] [address] CONSULTATION Name: CALDERON YOUNG Room: [address] M.R.#: [id number] Admission: 04/28/21 Attend Phys: Brianna Singleton MD Discharge: 05/01/21 Date of : 61 Report #: [id number] SOCIAL HISTORY: He does smoke. He does not drink alcohol nor does he have a history of alcohol abuse. REVIEW OF SYSTEMS: Otherwise, unremarkable. PHYSICAL EXAMINATION: VITAL SIGNS: Revealed his weight to be stable. HEART: His cardiopulmonary examination revealed a regular rhythm. LUNGS: Clear. ABDOMEN: Soft and mildly tender in epigastric area. No rebound or guarding noted. LABORATORY TESTS: From the revealed a white count of 5.6, hemoglobin 12.4, platelet count 190,000, MCV is 91.6 and RDW is 13.0. His laboratory test from the revealed a sodium 143, potassium 4.2, chloride 109, bicarbonate is 27, his BUN is 14, creatinine 0.84, GFR 100. Total bilirubin 1.1, alkaline phosphatase 87, his AST 254, ALT 250. His albumin is 3.5. Lipase was 1004. On admission, April 28, his bilirubin was 0.5, alkaline phosphatase was 45, AST was 29, ALT was 28 and albumin was 4.5. His lipase was 1603. CT scan of the abdomen and pelvis performed on April 28 revealed some calcifications within the pancreas. I did not see any calcifications within the common bile duct and the bile duct did not appear to be dilated. He does have a fatty liver. I did not see any stones necessarily within the pancreatic duct. There is a possibility of one at the genu that may be causing some downstream issues with the pancreas and pancreatitis. There is no evidence of pseudocyst formation. DISCUSSION: At the present time, the patient has recurrent bouts of pancreatitis of unclear etiology. We will proceed with laboratory testing and depending on the results of same, we may need to have further intervention. He most likely has to undergo an EUS and ERCP under the direction of Dr. Mcpherson as an outpatient. We will see if we can get him back here in the hospital in the next couple of days. I discussed plans with the patient and his and they are agreeable to the same. A total of 60 minutes was used to evaluate the patient, review his records, discussed his history and to formulate a plan of care. <ELECTRONICALLY SIGNED> By: Alessandro Fuller DO 05/02/21 0722 1054 1339Alessandro Fuller DO /nt
[2021-05-02 19:06] LABS: ANA INTERPRETATION Negative (())
[2021-05-03 06:06] LABS: IgG 705 mg/dL (603-1613)
== END 2021-05-01 11:35 | disposition home or self-care (01) | DRG 440 ==
LOC: M.ERS 05:54 → M.TBA-ER 06:59 → M.2W 15:15
PROVIDERS: Emergency Medicine; Internal Medicine Gastroenterology; ADMIT Family Medicine; ATTEND Family Medicine
DX: K85.90 Acute pancreatitis without necrosis or infection, unspecified (principal); Z88.8 Allergy status to other drugs, medicaments and biological substances; Z90.49 Acquired absence of other specified parts of digestive tract; I10 Essential (primary) hypertension; Z79.899 Other long term (current) drug therapy; E11.40 Type 2 diabetes mellitus with diabetic neuropathy, unspecified; Z79.4 Long term (current) use of insulin; F32.9 Major depressive disorder, single episode, unspecified; K57.90 Diverticulosis of intestine, part unspecified, without perforation or abscess without bleeding

== ENCOUNTER 2021-07-25 11:42 | Inpatient (IN) | payer MEDICAID ==
[~2021-07-25] VITALS: Ht 180.3 cm; Wt 76.7 kg
[~2021-07-25 11:42] MED LIST changes: +DULOXETINE HCL60 MG PO; +HYDROCHLOROTHIA25 M1 PO; +HYDROXYZINE HCL25 M2 PO; +LIPITOR10 MG PO; +METFORMIN HCL500 M3 PO; +METHOCARBAMOL500 M2 PO; +NEURONTIN 300M300 M2 PO; +TRIAMTERENE/HCT1 CA1 PO
[2021-07-25 11:43] VITALS: BP 180/83
[2021-07-25 12:01] LABS: HEMATOCRIT 41.8 % (42.0-52.0); MCH 30.6 pg (26.0-34.0); MCHC 33.5 g/dL (28.0-37.0); MCV 91.4 fL (80.0-100.0); MPV 8.3 fl. (7.2-11.1); NUCLEATED RBCS 0 /100WBC; PLATELET COUNT* 361 thou/uL (150-400); RBC 4.57 mil/uL (4.50-6.00); RDW-CV 12.5 % (10.5-14.5); WBC 14.4 thou/uL (4.0-11.0)
[2021-07-25 12:10] LABS: CALCIUM 9.2 mg/dL (8.5-10.1); POTASSIUM 3.8 mmol/L (3.5-5.1)
[2021-07-25 12:15] LABS: TOTAL BILIRUBIN 0.3 mg/dL (<0.1-1.0); TOTAL PROTEIN 7.9 g/dL (6.4-8.2)
[2021-07-25 12:39] LABS: ABSOLUTE LYMPHOCYTES 1.3 thou/uL (0.8-5.3); ABSOLUTE MONOCYTES 0.6 thou/uL (0.0-1.2); ABSOLUTE NEUTROPHILS 12.5 thou/uL (1.6-8.1)
[2021-07-25 12:40] LABS: PLATELET ESTIMATE ADEQUATE
--- NOTE | 2021-07-25 12:54 | EKG ---
[place] [address] ELECTROCARDIOGRAM REPORT Name: CALDERON YOUNG Room: [facility]#: [id number] Admission: 07/25/21 Attend Phys: Discharge: Date of : 61 Date of Service: 07/25/21 1153 Report #: [id number] THIS REPORT FOR: //name// [facility] ED Test Date: 2021-07-25 Test Time: 11:53:48 Pat Name: CALDERON YOUNG Department: Room: Gender: Motion Graphics Artist: [facility] : 1965 Requested By: Dylan Faith Order Number: [id number] MD: Asim Ortiz Measurements Intervals [place] Rate: 40 P: 60 CT: 133 QRS: 86 QRSD: 104 T: 66 QT: 508 QTc: 415 Interpretive Statements Sinus bradycardia with short pr interval, consider junctional rhythm Compared to ECG 03/12/2021 18:16:42 No significant changes Electronically Signed On 07-25-2021 12:54:32 DOBBY LOOM WEAVER by Asim Ortiz [email or web address] <ELECTRONICALLY SIGNED> By: Asim Ortiz MD, [facility] 07/25/21 1254 1153 1153 Asim Ortiz MD, [facility] /EPI
[2021-07-25 16:30] VITALS: BP 106/63
[2021-07-25 16:32] VITALS: BP 149/76
[2021-07-25 20:50] VITALS: BP 103/74
[2021-07-26 05:59] LABS: HEMATOCRIT 38.3 % (42.0-52.0); HEMOGLOBIN 12.8 gm/dL (14.0-18.0); MCH 30.5 pg (26.0-34.0); MCHC 33.5 g/dL (28.0-37.0); MPV 8.4 fl. (7.2-11.1); RBC 4.21 mil/uL (4.50-6.00); RDW-CV 12.4 % (10.5-14.5); WBC 12.5 thou/uL (4.0-11.0)
[2021-07-26 06:35] LABS: ALBUMIN 3.2 g/dL (3.4-5.0); CALCIUM 8.5 mg/dL (8.5-10.1); CREATININE 0.8 mg/dL (0.6-1.3); MAGNESIUM 1.5 mg/dL (1.8-2.4); POTASSIUM 3.3 mmol/L (3.5-5.1); TOTAL BILIRUBIN 0.4 mg/dL (<0.1-1.0); TOTAL PROTEIN 6.5 g/dL (6.4-8.2)
[2021-07-26 07:40] VITALS: BP 117/69
[2021-07-26 15:55] VITALS: BP 141/82
[2021-07-26 21:10] VITALS: BP 118/69
[2021-07-27 05:12] LABS: HEMATOCRIT 36.2 % (42.0-52.0); MCH 30.4 pg (26.0-34.0); MCHC 33.2 g/dL (28.0-37.0); MCV 91.5 fL (80.0-100.0); MPV 8.6 fl. (7.2-11.1); RBC 3.96 mil/uL (4.50-6.00); RDW-CV 12.6 % (10.5-14.5); WBC 9.7 thou/uL (4.0-11.0)
[2021-07-27 05:43] LABS: ALBUMIN 2.9 g/dL (3.4-5.0); CALCIUM 8.3 mg/dL (8.5-10.1); CREATININE 0.8 mg/dL (0.6-1.3); MAGNESIUM 1.9 mg/dL (1.8-2.4); POTASSIUM 4.1 mmol/L (3.5-5.1); TOTAL BILIRUBIN 0.5 mg/dL (<0.1-1.0); TOTAL PROTEIN 6.5 g/dL (6.4-8.2)
[2021-07-27 08:00] VITALS: BP 121/71
[2021-07-27 15:55] VITALS: BP 131/71
[2021-07-27 20:16] VITALS: BP 130/82
[2021-07-28 02:33] LABS: HEMATOCRIT 34.9 % (42.0-52.0); HEMOGLOBIN 11.9 gm/dL (14.0-18.0); MCH 30.9 pg (26.0-34.0); MCHC 34.2 g/dL (28.0-37.0); MCV 90.2 fL (80.0-100.0); MPV 8.4 fl. (7.2-11.1); RBC 3.87 mil/uL (4.50-6.00); RDW-CV 12.3 % (10.5-14.5)
[2021-07-28 02:46] LABS: ALBUMIN 2.8 g/dL (3.4-5.0); CALCIUM 8.5 mg/dL (8.5-10.1); CREATININE 0.7 mg/dL (0.6-1.3); MAGNESIUM 1.6 mg/dL (1.8-2.4); POTASSIUM 3.3 mmol/L (3.5-5.1); TOTAL BILIRUBIN 0.3 mg/dL (<0.1-1.0); TOTAL PROTEIN 6.3 g/dL (6.4-8.2)
[2021-07-28 08:00] VITALS: BP 120/72
[2021-07-28 15:54] VITALS: BP 125/80
[2021-07-28 20:50] VITALS: BP 128/78
[2021-07-29 08:16] VITALS: BP 126/81
[2021-07-29 15:37] LABS: ABSOLUTE BASOPHILS 0.1 thou/uL (0.0-0.2); ABSOLUTE EOSINOPHILS 0.2 thou/uL (0.0-0.7); ABSOLUTE LYMPHOCYTES 1.6 thou/uL (0.8-5.3); ABSOLUTE MONOCYTES 0.6 thou/uL (0.0-1.2); ABSOLUTE NEUTROPHILS 4.7 thou/uL (1.6-8.1); BASOPHILS 0.9 %; EOSINOPHILS 2.8 %; HEMATOCRIT 38.6 % (42.0-52.0); HEMOGLOBIN 13.1 gm/dL (14.0-18.0); LYMPHOCYTES 22.2 %; MCH 30.6 pg (26.0-34.0); MCHC 33.8 g/dL (28.0-37.0); MCV 90.7 fL (80.0-100.0); MONOCYTES 8.3 %; MPV 8.7 fl. (7.2-11.1); NUCLEATED RBCS 0 /100WBC; PLATELET COUNT* 270 thou/uL (150-400); POLYS 65.8 %; RBC 4.26 mil/uL (4.50-6.00); RDW-CV 12.4 % (10.5-14.5); WBC 7.2 thou/uL (4.0-11.0)
[2021-07-29 15:52] LABS: ALBUMIN 3.5 g/dL (3.4-5.0); CALCIUM 9.5 mg/dL (8.5-10.1); POTASSIUM 3.6 mmol/L (3.5-5.1); TOTAL BILIRUBIN 0.3 mg/dL (<0.1-1.0); TOTAL PROTEIN 7.8 g/dL (6.4-8.2)
[2021-07-29 21:30] VITALS: BP 138/86
[2021-07-30 04:21] VITALS: BP 116/69
[2021-07-30 12:06] VITALS: BP 136/73
[2021-07-30 14:10] VITALS: BP 136/73
== END 2021-07-30 14:45 | disposition home or self-care (01) | DRG 440 ==
LOC: M.ERS 11:42 → M.TBA-ER 13:22 → M.3W 16:22
PROVIDERS: Family Medicine; Internal Medicine Gastroenterology; ADMIT Internal Medicine; ATTEND Internal Medicine
PROC: 0DJ08ZZ Inspection of Upper Intestinal Tract, Via Natural or Artificial Opening Endoscopic (ICD-10-PCS; principal; 2021-07-29)
DX: K85.90 Acute pancreatitis without necrosis or infection, unspecified (principal); E11.9 Type 2 diabetes mellitus without complications; I10 Essential (primary) hypertension; F41.9 Anxiety disorder, unspecified; F32.9 Major depressive disorder, single episode, unspecified; G89.29 Other chronic pain; K86.1 Other chronic pancreatitis; F17.210 Nicotine dependence, cigarettes, uncomplicated; F12.90 Cannabis use, unspecified, uncomplicated; M54.9 Dorsalgia, unspecified; Z90.49 Acquired absence of other specified parts of digestive tract; Z87.442 Personal history of urinary calculi; Z88.6 Allergy status to analgesic agent; Z79.891 Long term (current) use of opiate analgesic